=== PATIENT | female | born 1965 | race Caucasian/White ===

== ENCOUNTER 2017-08-01 11:41 | Emergency (ER) | payer OTHER ==
[2017-08-01 11:58] VITALS: BMI 18.2
[2017-08-01] MEDS ORDERED: METOCLOPRAMIDE HCL INJECTION 10 MG/2 ML VIAL IVPB ONE (12:24)
[2017-08-01] MEDS ORDERED: SODIUM CHLORIDE 1,000 ML IV STA (12:24)
[2017-08-01] MEDS ORDERED: ACETAMINOPHEN 1000 MG/100 ML VIAL (NON FORMULARY) IVPB ONE (12:24)
[2017-08-01] MEDS ORDERED: MAG HYDROX/AL HYDROX/SIMETH 30 ML UNIT-DOSE CUP PO ONE (12:26)
[2017-08-01] MEDS ORDERED: FAMOTIDINE 20 MG/50 ML IVPB 20 MG/50 ML MG IVPB ONE ×2 (13:00→13:04)
[2017-08-01] MEDS ORDERED: METOCLOPRAMIDE HCL INJECTION 10 MG/2 ML VIAL ONE (13:04)
[2017-08-01] MEDS ORDERED: MAG HYDROX/AL HYDROX/SIMETH 30 ML UNIT-DOSE CUP ONE (13:04)
[2017-08-01] MEDS ORDERED: ACETAMINOPHEN INJECTION 100 ML IVPB ONE (13:04)
[2017-08-01 13:20] LABS: BASO % 0.8 % (0-2.0); EOS % 2.5 % (0-4.5); HEMATOCRIT 38.8 % (32.4-45.2); HEMOGLOBIN 13.5 GM/dL (10.7-15.3); LYMPH % 39.7 % (8-40); MCH 30.7 pg (25.7-33.7); MEAN CELL VOLUME 87.8 fl (80-96); MEAN PLT VOLUME 10.1 fl (7.5-11.1); MONO % 7.7 % (3.8-10.2); NEUT % 49.3 % (42.8-82.8); PLATELET COUNT 172 K/MM3 (134-434); RBC 4.42 M/mm3 (3.60-5.2); RDW 13.6 % (11.6-15.6); WHITE BLOOD COUNT 3.7 K/mm3 (4.0-10.0)
[2017-08-01 13:47] LABS: ALBUMIN 3.7 g/dl (3.4-5.0); ALK PHOS 74 U/L (45-117); ANION GAP 10 (8-16); BILIRUBIN,TOTAL 0.2 mg/dL (0.2-1.0); BLOOD UREA NITROGEN 9 mg/dL (7-18); CALCIUM 8.9 mg/dL (8.5-10.1); CHLORIDE 103 mmol/L (98-107); CO2 27 mmol/L (21-32); CREATININE 0.7 mg/dL (0.55-1.02); GLUCOSE,RANDOM 98 mg/dL (74-106); SGOT/AST 16 U/L (15-37); SGPT/ALT 20 U/L (12-78); SODIUM 140 mmol/L (136-145); TOT PROT 7.4 g/dl (6.4-8.2)
--- NOTE | 2017-08-01 13:53 | PDOC ---
History of Present Illness <Юлия Dixonmandyann-mariecary - Last Filed: 08/01/17 16:46> - History of Present Illness Initial Comments: 08/01/17 13:46 "The patient is a 51 year old female, with a significant past medical history of migraines(typically 1 episode per month), who presents to the emergency department for evaluation of headache for approximately 3 days. The patient describes her headache as a diffuse pressure similar in character to her usual migraines. She reports associated photophobia and nausea. Patient reports taking Submigran Plus(Ibuprofen+caffeine) and Excedrin extra strength, with relief of symptoms yesterday. However, today, patient reports her headache has returned. Patient reports her symptoms are similar to when shes had migraines in the past, but her migraines typically last only one day. She denies any recent head trauma, dizziness, lightheadedness, changes in speech, or changes in gait. Denies thunderclap, denies neck stiffness. She denies any recent fever , chills, cough, sore throat, or ear pain. She denies any chest pain, shortness of breath, diaphoresis, or palpitations. Allergies: NKDA Past Surgical History: None reported. Social History: Non smoker. No ETOH or recreational drug use. " <AnandMiko - Last Filed: 08/01/17 20:08> - General Chief Complaint: Headache Stated Complaint: MIGRAINE HEADACHE (PCP SENT) Time Seen by Provider: 08/01/17 12:11 Past History <Юлия Dixonglenn - Last Filed: 08/01/17 16:46> - Past Medical History COPD: No - Immunization History Immunization Up to Date: Yes - Suicide/Smoking/Psychosocial Hx Smoking History: Never smoked <AnandMiko - Last Filed: 08/01/17 20:08> - Past Medical History Allergies/Adverse Reactions: Allergies Allergy/AdvReac Type Severity Reaction Status Date / Time No Known Allergies Allergy Verified 08/01/17 11:55 Review of Systems - Review of Systems Comments:: 08/01/17 13:53 "GENERAL/CONSTITUTIONAL: No fever or chills. No weakness. HEAD, EYES, EARS, NOSE AND THROAT: Yes headache and photophobia. No ear pain or discharge. No sore throat. CARDIOVASCULAR: No chest pain or shortness of breath. RESPIRATORY: No cough, wheezing, or hemoptysis. GASTROINTESTINAL: No vomiting, diarrhea or constipation. GENITOURINARY: No dysuria, frequency, or change in urination. MUSCULOSKELETAL: No joint or muscle swelling or pain. No neck or back pain. SKIN: No rash NEUROLOGIC: Yes headache. No vertigo, loss of consciousness, or change in strength/sensation. ENDOCRINE: No increased thirst. No abnormal weight change. HEMATOLOGIC/LYMPHATIC: No anemia, easy bleeding, or history of blood clots. ALLERGIC/IMMUNOLOGIC: No hives or skin allergy. " <AnandMiko - Last Filed: 08/01/17 20:08> *Physical Exam - Vital Signs Last Vital Signs Temp Pulse Resp BP Pulse Ox 97.8 F 87 16 128/78 100 08/01/17 16:15 08/01/17 16:15 08/01/17 16:15 08/01/17 16:15 08/01/17 16:15 <Dixon,Giomilsy - Last Filed: 08/01/17 16:46> - Vital Signs Last Vital Signs Temp Pulse Resp BP Pulse Ox 97.9 F 93 H 20 122/79 97 08/01/17 11:55 08/01/17 11:55 08/01/17 11:55 08/01/17 11:55 08/01/17 11:55 - Physical Exam Comments: 08/01/17 13:54 "GENERAL: Awake, alert, and fully oriented, in no acute distress HEAD: No signs of trauma EYES: PERRLA, EOMI, sclera anicteric, conjunctiva clear ENT: Auricles normal inspection, hearing grossly normal, nares patent, oropharynx clear without exudates. Moist mucosa NECK: Nontender, no stepoffs, Normal ROM, supple, no lymphadenopathy, JVD, or masses LUNGS: Breath sounds equal, clear to auscultation bilaterally. No wheezes, and no crackles HEART: Regular rate and rhythm, normal S1 and S2, no murmurs, rubs or gallops ABDOMEN: Soft, nontender, normoactive bowel sounds. No guarding, no rebound. No masses EXTREMITIES: Normal range of motion, no edema. No clubbing or cyanosis. No cords, erythema, or tenderness NEUROLOGICAL: Cranial nerves II through XII intact. 5/5 strength and sensation in all extremities, Normal speech, normal gait, normal cerebellar function SKIN: Warm, Dry, normal turgor, no rashes or lesions noted. " <Miko Michel - Last Filed: 08/01/17 20:08> ED Treatment Course - LABORATORY CBC & Chemistry Diagram: 08/01/17 12:54 08/01/17 12:54 - ADDITIONAL ORDERS Additional order review: Laboratory Results 08/01/17 08/01/17 12:54 12:54 Sodium 140 Potassium 4.0 Chloride 103 Carbon Dioxide 27 Anion Gap 10 BUN 9 Creatinine 0.7 Creat Clearance w eGFR > 60 Random Glucose 98 Calcium 8.9 Total Bilirubin 0.2 AST 16 ALT 20 Alkaline Phosphatase 74 Total Protein 7.4 Albumin 3.7 Lipase 228 08/01/17 12:54 RBC 4.42 MCV 87.8 MCHC 35.0 RDW 13.6 MPV 10.1 Neutrophils % 49.3 Lymphocytes % 39.7 Monocytes % 7.7 Eosinophils % 2.5 Basophils % 0.8 - RADIOLOGY Radiograph Interpretation: 08/01/17 16:46 EXAM: Head CT INTERPRETED BY: Dr. Arellano REVIEWED BY: Dr. Michel IMPRESSION: No evidence of a focal intracranial lesion or hemorrhage seen. Correlate clinically to determine further evaluation and follow-up. - Medications Given in the ED: ED Medications Discontinued Medications Generic Name Dose Route Start Last Admin Trade Name Moises PRN Reason Stop Dose Admin Acetaminophen 1,000 mg 08/01/17 12:24 08/01/17 13:22 Ofirmev Injection - IVPB 08/01/17 12:25 1,000 mg ONCE ONE Administration Al Hydroxide/Mg Hydroxide 30 ml 08/01/17 12:26 08/01/17 13:22 Mylanta Oral Suspension - PO 08/01/17 12:27 30 ml ONCE ONE Administration Famotidine/Sodium Chloride 20 mg in 50 mls @ 100 mls/hr 08/01/17 13:00 13:11 Pepcid 20 Mg Premixed Ivpb - IVPB 08/01/17 13:29 100 mls/hr ONCE ONE Administration Sodium Chloride 1,000 mls @ 1,000 mls/hr 08/01/17 12:24 08/01/17 13:11 Normal Saline - IV 08/01/17 13:23 1,000 mls/hr ASDIR STA Administration Metoclopramide HCl 10 mg 08/01/17 12:24 08/01/17 13:34 Reglan Injection - IVPB 08/01/17 12:25 10 mg ONCE ONE Administration <Bryant Dixon - Last Filed: 08/01/17 16:46> - LABORATORY CBC & Chemistry Diagram: 08/01/17 12:54 08/01/17 12:54 - ADDITIONAL ORDERS Additional order review: 08/01/17 12:54 RBC 4.42 MCV 87.8 MCHC 35.0 RDW 13.6 MPV 10.1 Neutrophils % 49.3 Lymphocytes % 39.7 Monocytes % 7.7 Eosinophils % 2.5 Basophils % 0.8 - RADIOLOGY Radiology Studies Ordered: Category Date Time Status HEAD CT WITHOUT CONTRAST [CT] Stat CT Scan 08/01/17 12:25 Ordered - Medications Given in the ED: ED Medications Discontinued Medications Generic Name Dose Route Start Last Admin Trade Name Freq PRN Reason Stop Dose Admin Acetaminophen 1,000 mg 08/01/17 12:24 08/01/17 13:22 Ofirmev Injection - IVPB 08/01/17 12:25 1,000 mg ONCE ONE Administration Al Hydroxide/Mg Hydroxide 30 ml 08/01/17 12:26 08/01/17 13:22 Mylanta Oral Suspension - PO 08/01/17 12:27 30 ml ONCE ONE Administration Famotidine/Sodium Chloride 20 mg in 50 mls @ 100 mls/hr 08/01/17 13:00 13:11 Pepcid 20 Mg Premixed Ivpb - IVPB 08/01/17 13:29 100 mls/hr ONCE ONE Administration Sodium Chloride 1,000 mls @ 1,000 mls/hr 08/01/17 12:24 08/01/17 13:11 Normal Saline - IV 08/01/17 13:23 1,000 mls/hr ASDIR STA Administration Metoclopramide HCl 10 mg 08/01/17 12:24 08/01/17 13:34 Reglan Injection - IVPB 08/01/17 12:25 10 mg ONCE ONE Administration <Miko Michel - Last Filed: 08/01/17 20:08> Medical Decision Making - Medical Decision Making 08/01/17 13:54 51 F with headache x 3 days. Consistent in character with prior migraines. No red flags for SAH/meningitis or other acute intracranial process. However, given duration of symptoms, will obtain CTH. - Labs - CTH - nigel Booth, IVF 08/01/17 16:13 labs and CTH unremarkable. Pt reassessed - now reports complete resolution of headache. Neuro exam non-focal. Pt well appearing, no complaints at this time, vitals stable, clinically stable for DC. 08/01/17 20:08 I discussed the physical exam findings, ancillary test results and final diagnoses with the patient. I answered all of the patient's questions. The patient was satisfied with the care received and felt comfortable with the discharge plan and treatment plan. The patient agrees to follow up with the primary care physician within 24-72 hours. <Miko Michel - Last Filed: 08/01/17 20:08> *DC/Admit/Observation/Transfer - Attestations Scribe Attestion: 08/01/17 16:47 Documentation prepared by Bryant Dixon, acting as medical aide for Miko Michel MD. <Bryant Dixon - Last Filed: 08/01/17 16:46> - Attestations Physician Attestion: 08/01/17 16:18 I, Dr. Miko Michel MD, attest that this document has been prepared under my direction and personally reviewed by me in its entirety. I further attest, that it accurately reflects all work, treatment, procedures and medical decision -making performed by me. <Miko Michel - Last Filed: 08/01/17 20:08> Diagnosis at time of Disposition: Migraine - Discharge Dispostion Disposition: HOME Condition at time of disposition: Good - Referrals Referrals: Adam Michael MD [Staff Physician] - - Patient Instructions Printed Discharge Instructions: DI for Migraine Additional Instructions: Call the number provided to make an appointment with our neurologist for further management of your migraine headaches. If you experience worsening headache, fevers, neck stiffness, confusion, or any other concerning symptoms, return to the ER immediately.
[2017-08-01 16:16] VITALS: BP 128/78; PULSE 87; TEMP 97.8
== END 2017-08-01 16:48 | disposition home or self-care (01) ==
LOC: JER 11:41
PROC: 3E033GC Introduction of Other Therapeutic Substance into Peripheral Vein, Percutaneous Approach (ICD-10-PCS; principal; 2017-08-01)
PROC: 3E0337Z Introduction of Electrolytic and Water Balance Substance into Peripheral Vein, Percutaneous Approach (ICD-10-PCS; 2017-08-01)
PROC: 3E033NZ Introduction of Analgesics, Hypnotics, Sedatives into Peripheral Vein, Percutaneous Approach (ICD-10-PCS; 2017-08-01)
DX: G43.909 Migraine, unspecified, not intractable, without status migrainosus (principal)
CPT/HCPCS: 36415; 70450-TC; 80053; 83690; 85025; 99282-25

== ENCOUNTER 2018-02-15 13:42 | Emergency (ER) | payer OTHER ==
[2018-02-15 14:00] VITALS: BP 121/68; PULSE 79; TEMP 98.3; BMI 21.4
[2018-02-15] MEDS ORDERED: KETOROLAC TROMETHAMINE 60 MG/2 ML VIAL IM ONE (14:48)
[2018-02-15] MEDS ORDERED: KETOROLAC TROMETHAMINE 60 MG/2 ML VIAL ONE (14:49)
--- NOTE | 2018-02-15 14:54 | PDOC ---
History of Present Illness - General Chief Complaint: Back Pain Stated Complaint: PAIN Time Seen by Provider: 02/15/18 14:39 History Source: Patient Exam Limitations: No Limitations - History of Present Illness Associated Symptoms: denies: chest pain, cough, diaphoresis, fever/chills, loss of appetite, shortness of breath, syncope, weakness Past History - Travel Traveled outside of the country in the last 30 days: No Close contact w/someone who was outside of country & ill: No - Past Medical History Allergies/Adverse Reactions: Allergies Allergy/AdvReac Type Severity Reaction Status Date / Time No Known Allergies Allergy Verified 02/15/18 14:00 Home Medications: Ambulatory Orders Cyclobenzaprine HCl [Flexeril 10 mg] 10 mg PO BID 7 Days #14 tablet 02/15/18 Docusate Sodium [Colace -] 100 mg PO TID #21 capsule 02/15/18 Ibuprofen 800 mg PO ACDIN 7 Days #21 tablet 02/15/18 COPD: No Other medical history: MIGRAINES - Immunization History Immunization Up to Date: Yes - Suicide/Smoking/Psychosocial Hx Smoking History: Never smoked Hx Alcohol Use: No Drug/Substance Use Hx: No Substance Use Type: None Review of Systems - Review of Systems Able to Perform ROS?: No Is the patient limited Citizen Of [place] proficient: No Constitutional: No: Chills, Fever Respiratory: No: Orthopnea, Shortness of Breath Cardiac (ROS): No: Chest Pain, Irregular Heart Rate : Yes: Flank Pain (Right flank pain). No: Burning, Dysuria, Discharge, Hematuria, Incontinence, Urgency Musculoskeletal: Yes: Back Pain. No: Gout, Joint Pain, Muscle Pain, Muscle Weakness, Neck Pain Integumentary: No: Bruising, Change in Color, Change in Hair/Nails, Dryness, Erythema Neurological: No: Headache, Numbness, Paresthesia *Physical Exam - Vital Signs Last Vital Signs Temp Pulse Resp BP Pulse Ox 98.3 F 79 20 121/68 100 02/15/18 13:56 02/15/18 13:56 02/15/18 13:56 02/15/18 13:56 02/15/18 13:56 - Physical Exam General Appearance: Yes: Nourished Respiratory/Chest: positive: Lungs Clear, Normal Breath Sounds Cardiovascular: positive: Regular Rhythm, Regular Rate, S1, S2 Gastrointestinal/Abdominal: positive: Soft Musculoskeletal: positive: CVA Tenderness (R) Extremity: positive: Normal Capillary Refill, Normal Inspection 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 Patient denies she denies any bowel/bladder or saddle anesthesia. Patient denies any history of back pain on examination patient in mild distress to her right flank. Urine tests and Toradol given. If blood is noted on UA then CT will warranted to r/o renal stone. 02/15/18 15:58 and no blood no leukocytes no nitrates patient reassess after 60 mg of IM Toradol still with right flank discomfort spiral CT to rule out a renal stone ordered 02/15/18 17:[address] was negative for renal stone. I will treat pt for spasm there was also moderate amount of stool noted in the bowels. Patient was instructed to increase hydration [facility] pharmacy follow-up with primary care doctor *DC/Admit/Observation/Transfer Diagnosis at time of Disposition: Back pain Qualifiers: Back pain location: low back pain Chronicity: acute Back pain laterality: right Sciatica presence: without sciatica Qualified Code(s): M54.5 - Low back pain Constipation Qualifiers: Constipation type: slow transit constipation Qualified Code(s): K59.01 - Slow transit constipation - Discharge Dispostion Disposition: HOME Condition at time of disposition: Stable Decision to Admit order: No - Prescriptions Prescriptions: Cyclobenzaprine HCl [Flexeril 10 mg] 10 mg PO BID 7 Days #14 tablet Docusate Sodium [Colace -] 100 mg PO TID #21 capsule Ibuprofen 800 mg PO ACDIN 7 Days #21 tablet - Referrals - Patient Instructions Printed Discharge Instructions: Constipation, DI for Back Spasm - Post Discharge Activity
[2018-02-15 15:43] LABS: URINE APPEARANCE SLCLOUDY; URINE BILIRUBIN NEGATIVE (<2.0 mg/dL); URINE COLOR LTYELLOW; URINE GLUCOSE (UA) NEGATIVE (NEGATIVE); URINE KETONE NEGATIVE (NEGATIVE); URINE LEUK ESTERASE NEGATIVE (NEGATIVE); URINE NITRITE NEGATIVE (NEGATIVE); URINE PROTEIN NEGATIVE (NEGATIVE); URINE UROBILINOGEN NEGATIVE mg/dL (0.2-1.0)
== END 2018-02-15 17:15 | disposition home or self-care (01) ==
LOC: JERFT 13:42
PROC: 3E0233Z Introduction of Anti-inflammatory into Muscle, Percutaneous Approach (ICD-10-PCS; principal; 2018-02-15)
DX: K59.01 Slow transit constipation (principal)
CPT/HCPCS: 74176; 81003; 87086; 96372; 99281-25